=== PATIENT | female | born 1995 | race Caucasian/White ===

== ENCOUNTER 2018-08-19 05:55 | Inpatient (IN) | payer OTHER ==
[2018-08-19] MEDS ORDERED: LACTATED RINGER'S 1,000 ML IV (06:23)
[2018-08-19] MEDS ORDERED: OXYTOCIN 30 UNITS/LR 500 ML IV (06:30)
[2018-08-19] MEDS ORDERED: METHYLERGONOVINE 0.2 MG INJ IM (06:30)
[2018-08-19] MEDS ORDERED: MISOPROSTOL 200 MCG TAB PR (06:30)
[2018-08-19] MEDS ORDERED: CARBOPROST 250 MCG INJ IM (06:30)
[2018-08-19] MEDS ORDERED: IBUPROFEN 600 MG TAB PO (06:30)
[2018-08-19] MEDS ORDERED: BUTORPHANOL 2 MG INJ IV (06:30)
[2018-08-19] MEDS: LACTATED RINGER'S 1,000 ML IV ×3 (08:23→20:08)
[2018-08-19] MEDS: AMPICILLIN 2 GM/NS (PMX) 100 ML IV (08:34)
[2018-08-19] MEDS: MISOPROSTOL 50 MCG CAPSULE PO ×4 (08:34→22:43)
[2018-08-19 09:00] LABS: ADD MAN DIFF? NO
[2018-08-19 09:03] LABS: WHITE BLOOD COUNT 8.3 10^3/ul (4.8-10.8)
[2018-08-19 09:03] LABS: BASOPHILS % 0.2 % (0.0-2.0); EOSINOPHILS % 0.2 % (0.0-7.0); HEMATOCRIT 37.3 % (37.0-47.0); HEMOGLOBIN 12.9 g/dl (12.0-16.0); LYMPHOCYTES % 24.7 % (15.0-51.0); MEAN CORPUSCULAR HEMOGLOBIN 30.9 pg (29.0-33.0); MEAN CORPUSCULAR HGB CONC 34.6 g/dl (32.0-37.0); MEAN CORPUSCULAR VOLUME 89.4 fl (82.0-101.0); MEAN PLATELET VOLUME 11.8 fl (7.4-10.4); MONOCYTE # 0.6 10^3/ul (0.3-0.9); MONOCYTES % 7.3 % (0.0-11.0); NEUTROPHIL # 5.6 10^3/ul (1.6-7.5); NEUTROPHILS % 67.2 % (39.0-77.0); PLATELET COUNT 219 10^3/UL (140-415); RED BLOOD COUNT 4.17 10^6/ul (4.20-5.40)
[2018-08-19 09:30] LABS: PROTIME 12.3 Sec (11.9-14.9)
[2018-08-19 09:31] LABS: PARTIAL THROMBOPLASTIN TIME 29.8 Sec (23.0-35.0)
[2018-08-19 09:54] LABS: HEPATITIS B SURFACE ANTIGEN NEGATIVE (NEGATIVE)
[2018-08-19] MEDS: AMPICILLIN 1 GM/NS (PMX) 50 ML IV ×3 (12:28→20:36)
[2018-08-19] MEDS ORDERED: FENTAnyl 2MCG/ML-ROPIV 0.2% 100 ML (13:53)
[2018-08-19] MEDS ORDERED: DIPHENHYDRAMINE 50 MG INJ IV (14:00)
[2018-08-19] MEDS ORDERED: ONDANSETRON 4 MG INJ IV (14:00)
[2018-08-19] MEDS ORDERED: NALOXONE (0.4 MG/ML) INJ IV (14:00)
[2018-08-19 15:57] LABS: RAPID PLASMA REAGIN NONREACTIVE (NR)
[2018-08-19] MEDS: DEXTROSE 5%-LR 1,000 ML IV (22:06)
[2018-08-19] MEDS: FENTAnyl 2MCG/ML-ROPIV 0.2% 100 ML BAG EPI (23:16)
[2018-08-20] MEDS: AMPICILLIN 1 GM/NS (PMX) 50 ML IV ×3 (00:13→06:30)
[2018-08-20] MEDS: MISOPROSTOL 50 MCG CAPSULE PO ×2 (01:00→05:00)
[2018-08-20] MEDS: LACTATED RINGER'S 1,000 ML IV (04:04)
[2018-08-20] MEDS: OXYTOCIN 30 UNITS/LR 500 ML IV ×3 (05:44→10:07)
[2018-08-20] MEDS: LIDOCAINE 1% (MPF) 30 ML INJ INJ (05:44)
[2018-08-20] MEDS ORDERED: METHYLERGONOVINE 0.2 MG INJ IM (07:00)
[2018-08-20] MEDS ORDERED: NACL 0.9% 3 ML SYG IV (07:00)
[2018-08-20] MEDS ORDERED: MISOPROSTOL 200 MCG TAB PR (07:00)
[2018-08-20] MEDS ORDERED: CARBOPROST 250 MCG INJ IM (07:00)
[2018-08-20] MEDS ORDERED: MAGNESIUM HYDROXIDE 30ML CUP PO (07:00)
[2018-08-20] MEDS ORDERED: OXYTOCIN 30 UNITS/LR 500 ML IV (07:00)
[2018-08-20] MEDS ORDERED: ACETAMINOPHEN 325 MG TAB PO (07:00)
[2018-08-20] MEDS: BENZOCAINE 20% 56 ML SPRAY TOP (09:46)
[2018-08-20] MEDS: WITCH HAZEL/GLYCERIN PAD PR (09:47)
[2018-08-20] MEDS: SENNA/DOCUSATE NA (8.6MG/50MG) TAB PO ×2 (09:47→22:27)
[2018-08-20] MEDS: LANOLIN HPA 1 PKT TOP (09:47)
[2018-08-20] MEDS: IBUPROFEN 600 MG TAB PO ×3 (11:09→23:01)
[2018-08-20] MEDS: LACTATED RINGER'S 1,000 ML IV* (17:45)
[2018-08-21] MEDS: IBUPROFEN 600 MG TAB PO ×3 (06:35→17:56)
[2018-08-21 08:24] LABS: ADD MAN DIFF? NO
[2018-08-21 08:38] LABS: WHITE BLOOD COUNT 11.5 10^3/ul (4.8-10.8)
[2018-08-21 08:38] LABS: BASOPHILS % 0.3 % (0.0-2.0); EOSINOPHILS % 0.3 % (0.0-7.0); HEMATOCRIT 32.4 % (37.0-47.0); HEMOGLOBIN 11.3 g/dl (12.0-16.0); LYMPHOCYTES % 17.8 % (15.0-51.0); MEAN CORPUSCULAR HEMOGLOBIN 31.1 pg (29.0-33.0); MEAN CORPUSCULAR HGB CONC 34.9 g/dl (32.0-37.0); MEAN CORPUSCULAR VOLUME 89.3 fl (82.0-101.0); MEAN PLATELET VOLUME 11.5 fl (7.4-10.4); MONOCYTE # 0.6 10^3/ul (0.3-0.9); MONOCYTES % 4.8 % (0.0-11.0); NEUTROPHIL # 8.8 10^3/ul (1.6-7.5); NEUTROPHILS % 76.4 % (39.0-77.0); PLATELET COUNT 204 10^3/UL (140-415); RED BLOOD COUNT 3.63 10^6/ul (4.20-5.40); RED CELL DISTRIBUTION WIDTH 13.2 % (11.5-14.5)
[2018-08-21] MEDS: WITCH HAZEL/GLYCERIN PAD PR (21:01)
[2018-08-22] MEDS: IBUPROFEN 600 MG TAB PO ×2 (00:06→06:28)
[2018-08-22] MEDS: MEASLES,MUMPS,RUBELLA VACCINE INJ SC* (09:00)
[2018-08-22] MEDS: DIPHTH/TET/ACEL PERTUSS (ADULT) 0.5 ML VIAL IM* (09:00)
== END 2018-08-22 11:35 | disposition home or self-care (01) | DRG 807 ==
LOC: OBT 05:55 → PP1 08-20 08:27 → L-D 05:55 → OBT 06:10 → L-D 06:10
PROVIDERS: Obstetrics & Gynecology
PROC: 10E0XZZ Delivery of Products of Conception, External Approach (ICD-10-PCS; principal; 2018-08-20)
PROC: 0W8NXZZ Division of Female Perineum, External Approach (ICD-10-PCS; 2018-08-20)
DX: O80 Encounter for full-term uncomplicated delivery (principal); Z37.0 Single live birth; Z3A.39 39 weeks gestation of pregnancy
CPT/HCPCS: 62322; 76815; 76818; 85025; 85610; 85730; 86592; 86850; 86900; 86901; 87340